=== PATIENT | female | born 1990 | race Caucasian/White ===

== ENCOUNTER 2017-02-08 15:21 | Emergency (ER) | payer MEDICAID ==
--- NOTE | 2017-02-08 17:37 | ER Document Report ---
ED Skin Rash/Insect Bite/Abscs - General Mode of Arrival: Ambulatory Information source: Patient TRAVEL OUTSIDE OF THE [place] IN LAST 30 DAYS: No - HPI Patient complains to provider of: Possible insect bite <RODNEY MCFARLAND - Last Filed: 02/08/17 17:42> <REI HDZ - Last Filed: 02/08/17 19:21> - General Chief Complaint: Insect Bite Stated Complaint: POSSIBLE INSECT BITES Time Seen by Provider: 02/08/17 16:59 Notes: Patient is a 26 year old female who presents to the emergency department complaining of an insect bite this morning. Patient states that she did not feel the bite which is near her left elbow but complains of a rash, itching, and burning around the area. Patient also complains of a bite to her forehead. (RODNEY MCFARLAND) - Related Data Allergies/Adverse Reactions: No Known Allergies Allergy (Verified 02/08/17 15:29) Past Medical History - General Information source: Patient - Social History Smoking Status: Unknown if Ever Smoked Family History: Reviewed & Not Pertinent, Other - No family history of seizures Patient has suicidal ideation: No Patient has homicidal ideation: No - Past Medical History Cardiac Medical History: Reports: Hx Hypertension - borderline - Immunizations Hx Diphtheria, Pertussis, Tetanus Vaccination: Yes <RODNEY MCFARLAND - Last Filed: 02/08/17 17:42> Review of Systems - Review of Systems Constitutional: No symptoms reported EENT: No symptoms reported Cardiovascular: No symptoms reported Respiratory: No symptoms reported Gastrointestinal: No symptoms reported Genitourinary: No symptoms reported Female Genitourinary: No symptoms reported Musculoskeletal: No symptoms reported Skin: See HPI, Lumps, Rash Hematologic/Lymphatic: No symptoms reported Neurological/Psychological: No symptoms reported -: Yes All other systems reviewed and negative <RODNEY MCFARLAND - Last Filed: 02/08/17 17:42> Physical Exam - Vital signs Interpretation: Normal - General General appearance: Appears well, Alert - HEENT Head: Normocephalic, Atraumatic, Other - Small puncture wound consistent with bug bite to upper right forehead Eyes: Normal Pupils: PERRL - Respiratory Respiratory status: No respiratory distress Chest status: Nontender Breath sounds: Normal Chest palpation: Normal - Cardiovascular Rhythm: Regular Heart sounds: Normal auscultation Murmur: No - Abdominal Inspection: Normal Distension: No distension Bowel sounds: Normal Tenderness: Nontender Organomegaly: No organomegaly - Back Back: Normal, Nontender - Extremities General upper extremity: Nontender, Normal color, Normal ROM, Normal temperature General lower extremity: Normal inspection, Nontender, Normal color, Normal ROM , Normal temperature, Normal weight bearing. No: Elin's sign - Neurological Neuro grossly intact: Yes Cognition: Normal Orientation: AAOx4 [place] Coma Scale Eye Opening: Spontaneous [place] Coma Scale Verbal: Oriented [place] Coma Scale Motor: Obeys Commands [place] Coma Scale Total: 15 Speech: Normal Motor strength normal: LUE, RUE, LLE, RLE Sensory: Normal - Psychological Associated symptoms: Normal affect, Normal mood - Skin Skin Temperature: Warm Skin Moisture: Dry Skin Color: Normal Skin irregularity: other - Area to the dorsal aspect of the distal left humerus that is swollen and red with excoriation <REI HDZ - Last Filed: 02/08/17 19:21> - Vital signs Vitals: Temp Pulse Resp BP Pulse Ox 98.2 F 108 H 20 132/87 H 100 02/08/17 15:30 02/08/17 15:30 02/08/17 15:30 02/08/17 15:30 02/08/17 15:30 Course <RODNEY MCFARLAND - Last Filed: 02/08/17 17:42> <REI HDZ - Last Filed: 02/08/17 19:21> - Re-evaluation Re-evalutation: 02/08/17 Consistent with localized allergic reaction to bug bite. Patient will be given a small dose of prednisone for a few days. She is to take Benadryl at home. She is also to take Claritin or Zyrtec daily. Understands and agrees with plan. Stable for discharge home. No evidence of infection at this time. Patient with insect envenomation and swelling that is also pruritic. (REI HDZ) - Vital Signs Vital signs: Temp Pulse Resp BP Pulse Ox 98.2 F 88 16 120/73 100 02/08/17 15:30 02/08/17 18:15 02/08/17 18:15 02/08/17 18:15 02/08/17 18:15 Discharge <RODNEY MCFARLAND - Last Filed: 02/08/17 17:42> <REI HDZ - Last Filed: 02/08/17 19:21> - Discharge Clinical Impression: Allergic reaction to bee sting Condition: Stable Disposition: HOME, SELF-CARE Instructions: Swollen Insect Bite or Sting ([facility]) Prescriptions: Epinephrine [Epipen 2-Gigi] 0.3 mg IM ONCE #1 ml Prednisone 2 mg PO DAILY #3 tablet Forms: Return to Work Scribe Attestation: 02/08/17 19:21 I personally performed the services described in the documentation, reviewed and edited the documentation which was dictated to the scribe in my presence, and it accurately records my words and actions. (REI HDZ)
[2017-02-08] MEDS ORDERED: PREDNISONE 20 MG TABLET PO ONE (17:50)
[2017-02-08 18:16] VITALS: BP 120/73
== END 2017-02-08 18:15 | disposition home or self-care (01) ==
LOC: ER 15:21
DX: T63.441A Toxic effect of venom of bees, accidental (unintentional), initial encounter (principal); L53.0 Toxic erythema; M79.89 Other specified soft tissue disorders
CPT/HCPCS: 99281; J7512

== ENCOUNTER 2019-04-11 11:47 | Emergency (ER) | payer SELFPAY ==
--- NOTE | 2019-04-11 12:13 | ER Document Report ---
ED Medical Screen (RME) - General Chief Complaint: Abdominal Pain Stated Complaint: ABDOMINAL PAIN Time Seen by Provider: 04/11/19 12:01 Notes: Patient is a G5, P4 28-year-old female who presents the emergency department with left lower quadrant abdominal pain. She states that her pain started about 4 to 5 days ago. She states that it feels like a cramping feeling. She has a confirmed from the health department, but she is unsure about how far along she is. She does not remember when her last menstrual cycle was. She denies any vaginal bleeding, dysuria, vaginal discharge, or history of ovarian cysts. Exam: Abdomen tender in the left lower quadrant. I have greeted and performed a rapid initial assessment of this patient. A comprehensive ED assessment and evaluation of the patient, analysis of test results and completion of medical decision making process will be conducted by an additional ED providers. TRAVEL OUTSIDE OF THE [place] IN LAST 30 DAYS: No - Related Data Allergies/Adverse Reactions: No Known Allergies Allergy (Verified 02/08/17 15:29) Past Medical History - Past Medical History Cardiac Medical History: Reports: Hx Hypertension - borderline Denies: Hx Coronary Artery Disease, Hx Heart Attack Pulmonary Medical History: Denies: Hx Asthma, Hx Bronchitis, Hx COPD, Hx Pneumonia Neurological Medical History: Denies: Hx Cerebrovascular Accident, Hx Migraine, Hx Seizures Endocrine Medical History: Denies: Hx Diabetes Mellitus Type 1, Hx Diabetes Mellitus Type 2 Renal/ Medical History: Denies: Hx Peritoneal Dialysis Musculoskeltal Medical History: Denies Hx Arthritis - Immunizations Hx Diphtheria, Pertussis, Tetanus Vaccination: Yes Physical Exam - Vital signs Vitals: Temp Pulse Resp BP Pulse Ox 97.6 F 100 18 123/78 98 04/11/19 11:50 04/11/19 11:50 04/11/19 11:50 04/11/19 11:50 04/11/19 11:50 Course - Vital Signs Vital signs: Temp Pulse Resp BP Pulse Ox 97.6 F 100 18 123/78 98 04/11/19 11:50 04/11/19 11:50 04/11/19 11:50 04/11/19 11:50 04/11/19 11:50
[2019-04-11 12:36] LABS: ABSOLUTE LYMPHOCYTES (AUTO) 1.9 10^3/uL (0.5-4.7); ABSOLUTE MONOCYTES (AUTO) 0.5 10^3/uL (0.1-1.4); ABSOLUTE NEUT (AUTO) 8.3 10^3/uL (1.7-8.2); BASOPHILS % (AUTO) 0.3 % (0-2); EOSINOPHILS % (AUTO) 0.5 % (0-6); HEMATOCRIT 32.7 % (36.0-47.0); HEMOGLOBIN 11.3 g/dL (12.0-15.5); LYMPHOCYTES % (AUTO) 17.8 % (13-45); MEAN CORPUSCULAR HEMOGLOBIN 33.4 pg (27.0-33.4); MEAN CORPUSCULAR HGB CONC 34.4 g/dL (32.0-36.0); MEAN CORPUSCULAR VOLUME 97 fl (80-97); MONOCYTES % (AUTO) 4.8 % (3-13); PLATELET COUNT 236 10^3/uL (150-450); RED BLOOD COUNT 3.37 10^6/uL (3.72-5.28); SEGMENTED NEUTROPHILS % (AUTO) 76.6 % (42-78); TOTAL CELLS COUNTED % (AUTO) 100 %; WHITE BLOOD COUNT 10.8 10^3/uL (4.0-10.5)
[2019-04-11 12:37] LABS: APPEARANCE,URINE SLIGHTLY-CLOUDY; BILIRUBIN,URINE NEGATIVE (NEGATIVE); COLOR,URINE YELLOW; GLUCOSE, URINE NEGATIVE (NEGATIVE); KETONES,URINE NEGATIVE (NEGATIVE); LEUKOCYTE ESTERASE,URINE NEGATIVE (NEGATIVE); NITRITE,URINE NEGATIVE (NEGATIVE); PROTEIN,URINE NEGATIVE (NEGATIVE); URINE SPECIFIC GRAVITY 1.024
[2019-04-11 12:50] LABS: ALBUMIN 3.2 g/dL (3.5-5.0); ALKALINE PHOSPHATASE 75 U/L (38-126); ANION GAP 5 (5-19); ASPARTATE AMINO TRANSFERASE 18 U/L (14-36); BILIRUBIN,DIRECT 0.1 mg/dL (0.0-0.4); BILIRUBIN,TOTAL 0.2 mg/dL (0.2-1.3); BLOOD UREA NITROGEN 8 mg/dL (7-20); CARBON DIOXIDE 21 mmol/L (22-30); CHLORIDE 109 mmol/L (98-107); GLUCOSE 89 mg/dL (75-110)
--- NOTE | 2019-04-11 12:59 | RADIOLOGY REPORT (SQ) ---
EXAM DESCRIPTION: U/S OB 14+ TRNABD 1GES W/O DOP COMPLETED DATE/TIME: 04/11/2019 12:46 pm REASON FOR STUDY: lower abd pain/ COMPARISON: None. TECHNIQUE: Limited transabdominal grayscale ultrasound for evaluation of specific requested obstetri maci parameters. LIMITATIONS: None. FINDINGS: Live Ojeda intrauterine measuring 30 weeks 2 days. IMTIAZ 06/18/2019. EFW 152 9 g. CERVICAL LENGTH: 4.6 cm Closed. HAMMAD: 12.2 cm. FHR: 123 beats per minute. PRESENTATION: Cephalic. PLACENTA: Anterior ANATOMY: Not assessed OTHER: No other significant findings. IMPRESSION: LIMITED OBSTETRICAL ULTRASOUND WITH MEASURED PARAMETERS DELINEATED ABOVE. Trimester of : Third trimester - 28 weeks to delivery. TECHNICAL DOCUMENTATION: JOB ID: [id number] [place]-72 2010 [employer]- All Rights Reserved Reading location - IP/workstation name: [email or web address]
[2019-04-11] MEDS ORDERED: NORMAL SALINE 1000 ML 1,000 ML IV ONE (13:16)
--- NOTE | 2019-04-11 13:51 | ER Document Report ---
ED GI/ - General Chief Complaint: Abdominal Pain Stated Complaint: ABDOMINAL PAIN Time Seen by Provider: 04/11/19 12:01 Primary Care Provider: VINCENT JOYNER MD [ACTIVE STAFF] - Follow up as needed Mode of Arrival: Ambulatory Information source: Patient Notes: RME note: Patient is a G5, P4 28-year-old female who presents the emergency department with left lower quadrant abdominal pain. She states that her pain started about 4 to 5 days ago. She states that it feels like a cramping feeling. She has a confirmed from the health department, but she is unsure about how far along she is. She does not remember when her last menstrual cycle was. She denies any vaginal bleeding, dysuria, vaginal discharge, or history of ovarian cysts. TRAVEL OUTSIDE OF THE [place] IN LAST 30 DAYS: No - Related Data Allergies/Adverse Reactions: No Known Allergies Allergy (Verified 02/08/17 15:29) Past Medical History - General Information source: Patient - Social History Smoking Status: Current Every Day Smoker Chew tobacco use (# tins/day): No Frequency of alcohol use: None Drug Abuse: None Family History: Reviewed & Not Pertinent, Other - No family history of seizures Patient has suicidal ideation: No Patient has homicidal ideation: No - Past Medical History Cardiac Medical History: Reports: Hx Hypertension - borderline Denies: Hx Coronary Artery Disease, Hx Heart Attack Pulmonary Medical History: Denies: Hx Asthma, Hx Bronchitis, Hx COPD, Hx Pneumonia Neurological Medical History: Denies: Hx Cerebrovascular Accident, Hx Migraine, Hx Seizures Endocrine Medical History: Denies: Hx Diabetes Mellitus Type 1, Hx Diabetes Mellitus Type 2 Renal/ Medical History: Denies: Hx Peritoneal Dialysis Musculoskeletal Medical History: Denies Hx Arthritis - Immunizations Hx Diphtheria, Pertussis, Tetanus Vaccination: Yes Review of Systems - Review of Systems Constitutional: No symptoms reported EENT: No symptoms reported Cardiovascular: No symptoms reported Respiratory: No symptoms reported Gastrointestinal: Abdominal pain, Nausea Genitourinary: No symptoms reported Female Genitourinary: No symptoms reported Musculoskeletal: No symptoms reported Skin: No symptoms reported Hematologic/Lymphatic: No symptoms reported Neurological/Psychological: No symptoms reported Physical Exam - Vital signs Vitals: Temp Pulse Resp BP Pulse Ox 97.6 F 100 18 123/78 98 04/11/19 11:50 04/11/19 11:50 04/11/19 11:50 04/11/19 11:50 04/11/19 11:50 - Notes Notes: PHYSICAL EXAMINATION: GENERAL: Well-appearing, well-nourished and in no acute distress. HEAD: Atraumatic, normocephalic. EYES: Pupils equal round and reactive to light, extraocular movements intact, conjunctiva are normal. ENT: Nares patent, oropharynx clear without exudates. Moist mucous membranes. NECK: Normal range of motion, supple without lymphadenopathy LUNGS: Breath sounds clear to auscultation bilaterally and equal. No wheezes rales or rhonchi. HEART: Regular rate and rhythm without murmurs ABDOMEN: Soft, nontender, gravid abdomen. No guarding, no rebound. No masses appreciated. Female : No CVA tenderness. Musculoskeletal: Normal range of motion, no pitting or edema. No cyanosis. NEUROLOGICAL: Cranial nerves grossly intact. Normal speech, normal gait. Normal sensory, motor exams PSYCH: Normal mood, normal affect. SKIN: Warm, Dry, normal turgor, no rashes or lesions noted. Course - Re-evaluation Re-evalutation: Labs and radiology as recorded. Patient is 30 weeks 2 days . She reports she had a positive home test but was not sure how far along she was. Patient will follow-up with [facility]. Likely left lower quadrant pain is from round ligament pain. At the time of my evaluation her abdomen is soft, nontender she has not vomited or had diarrhea. She denies any fevers, dysuria or vaginal discharge. Laboratory 04/11/19 04/11/19 04/11/19 12:20 12:20 12:20 WBC 10.8 H RBC 3.37 L Hgb 11.3 L Hct 32.7 L MCV 97 MCH 33.4 MCHC 34.4 RDW 13.0 Plt Count 236 Seg Neutrophils % 76.6 Lymphocytes % 17.8 Monocytes % 4.8 Eosinophils % 0.5 Basophils % 0.3 Absolute Neutrophils 8.3 H Absolute Lymphocytes 1.9 Absolute Monocytes 0.5 Absolute Eosinophils 0.0 Absolute Basophils 0.0 Sodium 135.3 L Potassium 4.0 Chloride 109 H Carbon Dioxide 21 L Anion Gap 5 BUN 8 Creatinine 0.42 L Est GFR ( Amer) > 60 Est GFR (Non-Af Amer) > 60 Glucose 89 Calcium 9.0 Total Bilirubin 0.2 Direct Bilirubin 0.1 Neonat Total Bilirubin Not Reportable Neonat Direct Bilirubin Not Reportable Neonat Indirect Bili Not Reportable AST 18 ALT 12 Alkaline Phosphatase 75 Total Protein 6.0 L Albumin 3.2 L Serum HCG, Qual POSITIVE H Beta HCG, Quant 6671.80 H Total Beta HCG POSITIVE Urine Color Urine Appearance Urine pH Ur Specific [place] Urine Protein Urine Glucose (UA) Urine Ketones Urine Blood Urine Nitrite Urine Bilirubin Urine Urobilinogen Ur Leukocyte Esterase Urine WBC (Auto) Urine RBC (Auto) Urine Bacteria (Auto) Squamous Epi Cells Auto Urine Mucus (Auto) Urine Ascorbic Acid 04/11/19 12:20 WBC RBC Hgb Hct MCV MCH MCHC RDW Plt Count Seg Neutrophils % Lymphocytes % Monocytes % Eosinophils % Basophils % Absolute Neutrophils Absolute Lymphocytes Absolute Monocytes Absolute Eosinophils Absolute Basophils Sodium Potassium Chloride Carbon Dioxide Anion Gap BUN Creatinine Est GFR ( Amer) Est GFR (Non-Af Amer) Glucose Calcium Total Bilirubin Direct Bilirubin Neonat Total Bilirubin Neonat Direct Bilirubin Neonat Indirect Bili AST ALT Alkaline Phosphatase Total Protein Albumin Serum HCG, Qual Beta HCG, Quant Total Beta HCG Urine Color YELLOW Urine Appearance SLIGHTLY-CLOUDY Urine pH 6.0 Ur Specific [place] 1.024 Urine Protein NEGATIVE Urine Glucose (UA) NEGATIVE Urine Ketones NEGATIVE Urine Blood NEGATIVE Urine Nitrite NEGATIVE Urine Bilirubin NEGATIVE Urine Urobilinogen 2.0 H Ur Leukocyte Esterase NEGATIVE Urine WBC (Auto) 1 Urine RBC (Auto) 1 Urine Bacteria (Auto) TRACE Squamous Epi Cells Auto 10 Urine Mucus (Auto) RARE Urine Ascorbic Acid NEGATIVE Obstetrics Ultrasound 04/11/19 12:09 IMPRESSION: LIMITED OBSTETRICAL ULTRASOUND WITH MEASURED PARAMETERS DELINEATED ABOVE. Trimester of : Third trimester - 28 weeks to delivery. - Vital Signs Vital signs: Temp Pulse Resp BP Pulse Ox 98.0 F 90 16 112/70 100 04/11/19 14:22 04/11/19 14:22 04/11/19 14:22 04/11/19 14:22 04/11/19 14:22 - Laboratory Result Diagrams: 04/11/19 12:20 04/11/19 12:20 Laboratory results interpreted by me: 04/11/19 04/11/19 04/11/19 12:20 12:20 12:20 WBC 10.8 H RBC 3.37 L Hgb 11.3 L Hct 32.7 L Absolute Neutrophils 8.3 H Sodium 135.3 L Chloride 109 H Carbon Dioxide 21 L Creatinine 0.42 L Total Protein 6.0 L Albumin 3.2 L Serum HCG, Qual POSITIVE H Beta HCG, Quant 6671.80 H Urine Urobilinogen 04/11/19 12:20 WBC RBC Hgb Hct Absolute Neutrophils Sodium Chloride Carbon Dioxide Creatinine Total Protein Albumin Serum HCG, Qual Beta HCG, Quant Urine Urobilinogen 2.0 H Discharge - Discharge Clinical Impression: Left lower quadrant abdominal pain Qualifiers: Weeks of gestation: 30 weeks Qualified Code(s): Z3A.30 - 30 weeks gestation of Condition: Stable Disposition: HOME, SELF-CARE Additional Instructions: Copy of your ultrasound report has been provided to you. Please call the health department and let them know that you are 30 weeks and will need to be followed by [facility] at this point of your . For nausea you can safely take Benadryl. You can also eat saltine crackers or troy janet which both may h elp with nausea. Please return to the emergency department for any new or worsening symptoms to include development of worsening abdominal pain, persistent vomiting, fever or any other symptom that is concerning to you. Referrals: VINCENT JOYNER MD [ACTIVE STAFF] - Follow up as needed
[2019-04-11 14:23] VITALS: BP 112/70
== END 2019-04-11 14:30 | disposition home or self-care (01) ==
LOC: ER 11:47
DX: O26.893 Other specified pregnancy related conditions, third trimester (principal); R10.32 Left lower quadrant pain; R11.0 Nausea; O99.333 Smoking (tobacco) complicating pregnancy, third trimester; F17.200 Nicotine dependence, unspecified, uncomplicated; Z3A.30 30 weeks gestation of pregnancy
CPT/HCPCS: 36415; 84702; 84703; 85025; 80053; 81001; 76805; J7030; 99284

== ENCOUNTER → 2019-04-19 | Outpatient (CLI) | payer SELFPAY ==
--- NOTE | 2019-04-19 14:19 | RADIOLOGY REPORT (SQ) ---
EXAM DESCRIPTION: U/S OB 14+ TRNABD 1GES W/O DOP COMPLETED DATE/TIME: 04/19/2019 1:50 pm REASON FOR STUDY: Z34.83 ENCOUNTER FOR SUPRVSN OF NORMAL , THIRD TRIMESTER Z34.83 ENCOUNTE R FOR SUPRVSN OF NORMAL , THIRD TRIM 30 weeks 5 days gestation COMPARISON: 04/11/2019 TECHNIQUE: Static and Dynamic grayscale imaging performed of gravid uterus using transabdominal appr oach. Additional selected color Doppler and spectral images recorded. All stored on PACS. LIMITATIONS: None. FINDINGS: FETUSES SEEN:1 EGA: 30 weeks 5 days Calculated using BPD,FL,HC,AC documented on images. No discrepancy with clinica l dates. IMTIAZ: 06/23/2019 EFW: 1667+/- 247 grams PERCENTILE: 45th HAMMAD: 13.5 cm. PLACENTA: Anterior, grade 1. PRESENTATION: Cephalic. ANATOMY: HEART RATE: 144 beats per minute. FOUR CHAMBER HEART: Visualized. THREE VESSEL CORD: Yes. CORD INSERTION: Visualized. KIDNEYS AND BLADDER: Visualized. Appear normal. STOMACH: Visualized. Appears normal. SPINE: Normal as visualized. BRAIN AND LATERAL VENTRICLES: Visualized. Appear normal. OTHER: No other significant finding. MATERNAL ADNEXA: Maternal ovaries not visualized. CERVICAL LENGTH: 3 cm. Closed. OTHER: No other significant finding. IMPRESSION: LIVING INTRAUTERINE . ESTIMATED GESTATIONAL AGE 30 weeks 5 days NO VISUALIZED ANOMALIES. Trimester of : Third trimester - 28 weeks to delivery. TECHNICAL DOCUMENTATION: JOB ID: [id number] [email or web address]- All Rights Reserved Reading location - IP/workstation name: [email or web address]
== END ==
LOC: RAD 12:52
PROVIDERS: ATTEND Midwife
DX: Z34.83 Encounter for supervision of other normal pregnancy, third trimester (principal)
CPT/HCPCS: 76805

== ENCOUNTER 2019-05-26 22:31 | Inpatient (IN) | payer MEDICAID ==
[2019-05-26] MEDS ORDERED: OXYTOCIN 10 UNIT/ML VIAL ONE (23:31)
[2019-05-26] MEDS ORDERED: MISOPROSTOL 0.2 MG TABLET ONE (23:32)
[2019-05-26] MEDS ORDERED: OXYTOCIN/NORMAL SALINE 20 UNIT/1,000 ML RTUINJ ONE (23:32)
[2019-05-26] MEDS ORDERED: LIDOCAINE 1% INJ-PF (10 MG/ML) 30 ML SDV ONE (23:32)
[2019-05-26] MEDS ORDERED: PENICILLIN G-K 5 MILLION UNIT VIAL ONE (23:36)
[2019-05-26 23:37] LABS: APPEARANCE,URINE CLOUDY; BILIRUBIN,URINE NEGATIVE (NEGATIVE); COLOR,URINE YELLOW; GLUCOSE, URINE NEGATIVE (NEGATIVE); KETONES,URINE NEGATIVE (NEGATIVE); LEUKOCYTE ESTERASE,URINE TRACE (NEGATIVE); NITRITE,URINE NEGATIVE (NEGATIVE); PROTEIN,URINE 100 mg/dL (NEGATIVE); URINE SPECIFIC GRAVITY 1.013; UROBILINOGEN,URINE NEGATIVE mg/dL (<2.0)
[2019-05-26 23:53] LABS: URINE AMPHETAMINES SCREEN NEGATIVE; URINE BARBITURATES SCREEN NEGATIVE; URINE BENZODIAZEPINES SCREEN NEGATIVE; URINE COCAINE SCREEN NEGATIVE; URINE MARIJUANA (THC) SCREEN NEGATIVE; URINE METHADONE SCREEN NEGATIVE; URINE PHENCYCLIDINE SCREEN NEGATIVE
[2019-05-26 23:56] LABS: ABSOLUTE EOSINOPHILS # (AUTO) 0.1 10^3/uL (0.0-0.6); ABSOLUTE LYMPHOCYTES (AUTO) 2.4 10^3/uL (0.5-4.7); ABSOLUTE MONOCYTES (AUTO) 0.8 10^3/uL (0.1-1.4); ABSOLUTE NEUT (AUTO) 10.6 10^3/uL (1.7-8.2); BASOPHILS % (AUTO) 0.3 % (0-2); EOSINOPHILS % (AUTO) 0.7 % (0-6); HEMATOCRIT 30.6 % (36.0-47.0); HEMOGLOBIN 10.6 g/dL (12.0-15.5); LYMPHOCYTES % (AUTO) 17.4 % (13-45); MEAN CORPUSCULAR HEMOGLOBIN 33.4 pg (27.0-33.4); MEAN CORPUSCULAR HGB CONC 34.7 g/dL (32.0-36.0); MEAN CORPUSCULAR VOLUME 96 fl (80-97); MONOCYTES % (AUTO) 5.5 % (3-13); PLATELET COUNT 239 10^3/uL (150-450); RED BLOOD COUNT 3.18 10^6/uL (3.72-5.28); SEGMENTED NEUTROPHILS % (AUTO) 76.1 % (42-78); TOTAL CELLS COUNTED % (AUTO) 100 %; WHITE BLOOD COUNT 13.9 10^3/uL (4.0-10.5)
[2019-05-26] MEDS ORDERED: PENICILLIN G POTASSIUM 5,000,000 UNIT in DEXTROSE 5%-WATER 100 ML IV ONE (23:59)
[2019-05-27] MEDS ORDERED: PENICILLIN G-K 5 MILLION UNIT VIAL ONE ×2 (03:54→07:44)
--- NOTE | 2019-05-27 03:58 | Admission Physical ---
Datetime Report Generated by CPN: 05/27/2019 03:57 CURRENT ADMISSION Chief Complaint: Suspected Ruptured Membranes Indication for Induction: Not Applicable Admit Impression : , Intrauterine ; No Active Labor Admit Plan: Admit to Unit; Initiate Labor Induction Protocol ALLERGIES Medication Allergies: No Medication Allergies: No Known Allergies (05/26/2019) Latex: No Latex Allergies OBSTETRICAL HISTORY EDC: 06/23/2019 00:00 : 5 Para: 4 Term: 4 : 0 SAB: 0 IAB: 0 Ectopic: 0 Livin Cesareans: 0 VBACs: 0 Multiple Births: 0 Gestational Diabetes: No Rh Sensitization: No Incompetent Cervix: No YESIKA: No Infertility: No ART Treatment: No Uterine Anomaly: No IUGR: No Hx Previous C/S: No Macrosomia: No Hx Loss/Stillborn: No PIH: No Hx : No Placenta Previa/Abruption: No Depression/PP Depression: No PTL/PROM: No Post Hemorrhage: No Obstetrical History Comments: G1 2007 boy @ 37 weeks G2 2008 boy IOL @37 weeks G3 2013 girl @42 G4 2015 girl @42 G5 current SEE RECORDS Alcohol: No Marijuana : No Cocaine: No Other Illicit Drugs: No Cigarettes: Current Everyday Smoker. [id number] Cigarette Frequency: 5 - 10 per day Advised to Stop: Yes MEDICAL HISTORY Diabetes: No Blood Transfusion: No Pulmonary Disease (Asthma, TB): No Breast Disease: No Hypertension: No Physical Security Specialist Surgery: No Heart Disease: No Hosp/Surgery: Yes Autoimmune Disorder: No Anesthetic Complications: No Kidney Disease: No Abnormal Pap Smear: No Neuro/Epilepsy: No Psychiatric Disorders: No Other Medical Diseases: No Hepatitis/Liver Disease: No Significant Family History: No Varicosities/Phlebitis: No Trauma/Violence : No Thyroid Dysfunction: No Medical History Comments: esophagus surgery as an INFECTIOUS HISTORY Gonorrhea: No Genital Herpes: No Chlamydia: No Tuberculosis: No Syphilis: No Hepatitis: No HIV/AIDS Exposure: No Rash or Viral Illness: No HPV: No PHYSICAL EXAM General: Normal HEENT: Normal Neurologic: Normal Thyroid: Normal Heart: Normal Lungs: Normal Breast: Normal Back: Normal Abdomen: Normal Genitourinary Exam: Normal Extremities: Normal DTRs: Normal Pelvic Type: Adequate Vital Signs: Reviewed; Within Normal Limits VAGINAL EXAM Dilatation: 1 Effacement: thick Station: -3 MEMBRANES Pooling: Positive Membranes: Ruptured Amniotic Fluid Color: Clear FETUS A EGA: 36.1 Monitoring: External US FHR- Baseline: 120s Variability: Moderate 6-25bpm Accelerations: 15X15 Decelerations: None FHR Category: Category I Admit Comment: presents to L_D c/o SROM @ 2100--clear fluid noted. She reports good movement. GBS unknown. PLANS FOR LABOR AND DELIVERY Pain Management: Natural Feeding Preference: Breast Benefit of Breast Feed Discussed: Yes Circumcision: Yes INFORMED CONSENT Signature: with User ID: [email or web address]
[2019-05-27] MEDS: PENICILLIN G POTASSIUM 2,500,000 UNIT in DEXTROSE 5%-WATER 50 ML IV SCH ×4 (04:03→17:51)
[2019-05-27] MEDS ORDERED: OXYTOCIN/NORMAL SALINE 20 UNIT/1,000 ML RTUINJ IV PRN ×2 (04:51→09:24)
[2019-05-27] MEDS ORDERED: FENTANYL CITRATE INJ/PF 100 MCG/2 ML AMPUL IV ONE (08:00)
[2019-05-27] MEDS ORDERED: FENTANYL CITRATE INJ/PF 100 MCG/2 ML AMPUL ONE (08:09)
[2019-05-27] MEDS ORDERED: DIPHENHYDRAMINE HCL 25 MG CAPSULE PO PRN (09:24)
[2019-05-27] MEDS ORDERED: ZOLPIDEM TARTRATE 5 MG TABLET PO PRN (09:24)
[2019-05-27] MEDS ORDERED: BENZOCAINE/MENTHOL AEROSOL SPRAY 56 ML TOP PRN (09:24)
[2019-05-27] MEDS ORDERED: PSEUDOEPHEDRINE HCL 30 MG TABLET PO PRN (09:24)
[2019-05-27] MEDS ORDERED: PROMETHAZINE HCL 25 MG SUPP.RECT PR PRN (09:24)
[2019-05-27] MEDS ORDERED: DIPH/PERTUSS(ACELL)/TETANUS VAC/PF 0.5 ML SYR (>=10YO) IM PRN (09:24)
[2019-05-27] MEDS ORDERED: DIBUCAINE 1% OINTMENT 56 GM TP PRN (09:24)
[2019-05-27] MEDS ORDERED: ACETAMINOPHEN 650 MG SUPP.RECT PR PRN (09:24)
[2019-05-27] MEDS ORDERED: PROMETHAZINE HCL INJ 25 MG/1 ML VIAL IV PRN (09:24)
[2019-05-27] MEDS ORDERED: GLYCERIN/WITCH HAZEL LEAF 1 EACH MED..WIPE TP PRN (09:24)
[2019-05-27] MEDS ORDERED: MAGNESIUM HYDROXIDE SUSP 30 ML UDCUP PO PRN (09:24)
[2019-05-27] MEDS ORDERED: PROMETHAZINE HCL 25 MG TABLET PO PRN (09:24)
[2019-05-27] MEDS ORDERED: MEASLES,MUMPS&RUBELLA VACC/PF 0.5 ML VIAL SUBCUT PRN (09:24)
[2019-05-27] MEDS ORDERED: ACETAMINOPHEN WITH CODEINE #3 TABLET PO PRN ×2 (09:24)
[2019-05-27] MEDS ORDERED: NA PHOS,M-B/NA PHOS,DI-BA (ADULT) 133 ML ENEMA PR PRN (09:24)
[2019-05-27] MEDS: DOCUSATE SODIUM 100 MG CAPSULE PO SCH ×2 (10:36→17:49)
[2019-05-27] MEDS: FAMOTIDINE 20 MG TABLET PO SCH ×2 (10:36→22:56)
[2019-05-27] MEDS: FERROUS SULFATE 325 MG TABLET PO SCH ×2 (10:36→17:49)
[2019-05-27] MEDS: PRENATAL VITAMIN W DHA CAPSULE PO SCH (10:36)
[2019-05-27] MEDS: SENNOSIDES/DOCUSATE 8.6-50 MG 1 EACH TABLET PO SCH (10:37)
--- NOTE | 2019-05-27 11:06 | Warning Signs in Babies ---
VOD Warning Signs Datetime Report Generated by [facility]: 05/27/2019 11:06 VOD#[id number] -Warning Signs in Babies: Viewed with Parent(s)/Family (05/27/2019 11:06:Kalia Ford RN)
--- NOTE | 2019-05-27 12:07 | Delivery Summary ---
Del Sum A-C Datetime Report Generated by CPN: 05/27/2019 12:07 DELIVERY PERSONNEL DELIVERY PERSONNEL: [id number] Delivery Doctor:: Renetta Lyons CNM Nurse Stenotypist Certified:: Renetta Lyons CNM Labor and Delivery Nurse:: Kalia Ford RNplan manager Nurse:: MEGAN Hanna Student Observers:: SN Donte Andersen/TAMIR: Radha Olivo CNA II MATERNAL INFORMATION Delivery Anesthesia: None Medications After Delivery: Pitocin Drip 20 Units/1000ml NSS Meds After Delivery Comment: 20 units pitocin bolus s/p placenta Estimated Blood Loss (ml): 125 Delivery QBL: 125 Maternal Complications: Premature Rupture of Membranes Provider Comments: live male in vertex OA to RADHA with tight nuchal cord, unable to reduce-delivered through cord at 0848. Spontaneous respirations and cry. 3-vessel cord. Apgars 7-8. Perineum inspected-2 small skid martinez, no repair needed. Placenta, membranes, and cord expelled at 0852, Jane presentation. Patient tolerated procedure well. FF at U-3. Baby on chest when CNM left room. LABOR SUMMARY EDC: 06/23/2019 00:00 No. Babies in Womb: 1 Attempted: No Labor Anesthesia: None LABOR INFORMATION Reason for Induction: Not Applicable Onset of Labor: 05/27/2019 08:00 Complete Dilatation: 05/27/2019 08:39 Oxytocin: Augmentation Group B Beta Strep: unknown Antibiotics # of Doses: 3 Name of Antibiotic Given: Penicillin Steroids Given: None Reason Steroids Not Administered: Not Applicable MEMBRANES Membranes Rupture Method: Spontaneous Rupture of Membranes: 05/26/2019 21:00 Length of Rupture (hr): 11.80 Amniotic Fluid Color: Clear Amniotic Fluid Amount: Large Amniotic Fluid Odor: Normal STAGES OF LABOR Stage 1 hr: 0 Stage 1 min: 39 Stage 2 hr: 0 Stage 2 min: 9 Stage 3 hr: 0 Stage 3 min: 4 Total Time in Labor hr: 0 Total Time in Labor min: 52 VAGINAL DELIVERY Episiotomy: None Laceration #1: None Laceration Extension #1: N/A Laceration Repair: Not Applicable Sponge Count Correct: N/A Sharps Count Correct: Yes BABY A INFORMATION Delivery Date/Time: 05/27/2019 08:48 Method of Delivery: Vaginal Born in Route : No : N/A Forceps: N/A Vacuum Extraction: N/A Shoulder Dystocia : No PRESENTATION/POSITION BABY A Presentation: Cephalic Cephalic Presentation: Vertex Vertex Position: Right Occipital Anterior Breech Presentation: N/A PLACENTA INFORMATION BABY A Placenta Delivery Time : 05/27/2019 08:52 Placenta Method of Delivery: Expressed Placenta Status: Delivered SCORES BABY A Heart Rate 1 min: >100 bpm Resp Effort 1 min: Good Cry Reflex Irritability 1 min: Cough or Sneeze or Pulls Away Muscle Tone 1 min: Some Flexion of Extremities Color 1 min: Blue/Pale Resuscitation Effort 1 min: Tactile Stimulation SCORE 1 MIN: 7 Heart Rate 5 min: >100 bpm Resp Effort 5 min: Good Cry Reflex Irritability 5 min: Cough or Sneeze or Pulls Away Muscle Tone 5 min: Some Flexion of Extremities Color 5 min: Body [place], Extremities Blue Resuscitation Effort 5 min: Tactile Stimulation SCORE 5 MIN: 8 INFORMATION BABY A Gestational Age at Delivery: 36.1 Gestational Status: Late - 34- 36.6 Weeks Outcome : Liveborn Condition : Stable Sex: Male IDENTIFICATION BABY A Verification Date/Time: 05/27/2019 09:08 ID Band Number: [id number] Mother's Name Verified: Yes Infant RN Verifying Infant: V Monk RN Additional Verifying Personnel: S Chucho ROTARY FURNACE TENDER WEIGHT/LENGTH BABY A Infant Birthweight (gm): 2605 Infant Weight (lb): 5 Infant Weight (oz): 12 Infant Length (in): 19.25 Infant Length (cm): 48.90 CORD INFORMATION BABY A No. Cord Vessels: 3 Nuchal Cord : Around Neck x1, Tight Cord Blood Taken: Yes-For Eval (Mom's Blood Type - or O+) Suction: None ASSESSMENT BABY A Complications: None Physical Findings at Delivery: Molding of the Head Respirations: Appears Normal Skin to Skin: Yes Skin to Skin Time (min): 13 Quarry Boss/ALS Called : Yes Care By: Marvin Transferred To: Remains with Mother BABY B INFORMATION : N/A SIGNATURES Assignment: Amna Bell MD Signature: with User ID: [email or web address] : with User ID: [email or web address] : I personally evaluated and examined the patient in conjunction with the MLP and agree with the assessment, treatment plan and disposition.
[2019-05-27] MEDS: IBUPROFEN 800 MG TABLET PO SCH ×2 (13:55→22:56)
[2019-05-28] MEDS: PENICILLIN G POTASSIUM 2,500,000 UNIT in DEXTROSE 5%-WATER 50 ML IV SCH ×2 (00:30→05:23)
[2019-05-28] MEDS: IBUPROFEN 800 MG TABLET PO SCH ×3 (06:32→21:29)
[2019-05-28 06:50] LABS: HEMATOCRIT 27.8 % (36.0-47.0); HEMOGLOBIN 9.4 g/dL (12.0-15.5); MEAN CORPUSCULAR HGB CONC 33.9 g/dL (32.0-36.0); MEAN CORPUSCULAR VOLUME 98 fl (80-97); PLATELET COUNT 197 10^3/uL (150-450); RED BLOOD COUNT 2.85 10^6/uL (3.72-5.28); RED CELL DISTRIBUTION WIDTH 13.1 % (11.5-14.0); WHITE BLOOD COUNT 10.9 10^3/uL (4.0-10.5)
[2019-05-28] MEDS: SENNOSIDES/DOCUSATE 8.6-50 MG 1 EACH TABLET PO SCH (09:24)
[2019-05-28] MEDS: DOCUSATE SODIUM 100 MG CAPSULE PO SCH ×2 (09:24→18:05)
[2019-05-28] MEDS: PRENATAL VITAMIN W DHA CAPSULE PO SCH (09:24)
[2019-05-28] MEDS: FAMOTIDINE 20 MG TABLET PO SCH ×2 (09:24→21:28)
[2019-05-28] MEDS: FERROUS SULFATE 325 MG TABLET PO SCH ×2 (09:24→18:05)
--- NOTE | 2019-05-28 10:39 | PDOC PROGRESS REPORT ---
Subjective-OB Progress Note for:: 05/28/19 Subjective: Doing well, baby in NICU, but wants to go Physical Exam (OB) Vital Signs: Temp Pulse Resp BP Pulse Ox 97.7 F 70 16 108/67 99 05/27/19 19:55 05/27/19 19:55 05/27/19 19:55 05/27/19 19:55 05/27/19 19:55 Intake & Output 05/27/19 05/28/19 05/29/19 06:59 06:59 06:59 Intake Total 850 Balance 850 Weight 88.9 kg - PIH/Pre-Eclampsia Epigastric Pain: No Visual Changes: No - Lochia Lochia Amount: Scant < 10 ml Lochia Color: Rubra/Red - Abdomen Description: Soft Hernia Present: No Fundal Description: Firm, Midline Fundal Height: u/u - u/2 Objective-Diagnostic Laboratory: 05/28/19 06:25 05/28/19 06:25 WBC 10.9 H RBC 2.85 L Hgb 9.4 L Hct 27.8 L MCV 98 H MCH 33.0 MCHC 33.9 RDW 13.1 Plt Count 197 Assessment and Plan(PN) - Assessment and Plan (2) Smoker Is this a current diagnosis for this admission?: Yes - Time Spent with Patient Time with patient: Less than 15 minutes Medications reviewed and adjusted accordingly: Yes - Disposition Anticipated Discharge: Home Within: within 24 hours
[2019-05-29] MEDS: IBUPROFEN 800 MG TABLET PO SCH (06:19)
[2019-05-29] MEDS: FERROUS SULFATE 325 MG TABLET PO SCH (09:01)
[2019-05-29] MEDS: PRENATAL VITAMIN W DHA CAPSULE PO SCH (09:01)
[2019-05-29] MEDS: SENNOSIDES/DOCUSATE 8.6-50 MG 1 EACH TABLET PO SCH (09:02)
[2019-05-29] MEDS: FAMOTIDINE 20 MG TABLET PO SCH (09:02)
[2019-05-29] MEDS: DOCUSATE SODIUM 100 MG CAPSULE PO SCH (09:02)
[2019-05-29 09:11] VITALS: BP 134/63
--- NOTE | 2019-05-29 10:31 | PDOC PROGRESS REPORT ---
Subjective-OB Progress Note for:: 05/29/19 Subjective: Ready to go home, has other children at home, baby not going, Physical Exam (OB) Vital Signs: Temp Pulse Resp BP Pulse Ox 97.9 F 50 L 16 134/63 H 100 05/29/19 08:40 05/29/19 08:40 05/29/19 08:40 05/29/19 08:40 05/29/19 08:40 Intake & Output 05/28/19 05/29/19 05/30/19 06:59 06:59 06:59 Intake Total 850 Balance 850 - PIH/Pre-Eclampsia Headache: Absent Epigastric Pain: No Visual Changes: No - Lochia Lochia Amount: Scant < 10 ml Lochia Color: Rubra/Red - Abdomen Description: Tender, Soft Hernia Present: No Fundal Description: Firm, Midline Fundal Height: u/u - u/2 Objective-Diagnostic Laboratory: 05/28/19 06:25 Assessment and Plan(PN) - Assessment and Plan (2) Smoker Is this a current diagnosis for this admission?: Yes (3) Late onset care Is this a current diagnosis for this admission?: Yes - Time Spent with Patient Time with patient: Less than 15 minutes Smoking Education Provided: Over 3 minutes Medications reviewed and adjusted accordingly: Yes - Disposition Anticipated Discharge: Home Within: within 24 hours
--- NOTE | 2019-05-29 10:35 | PDOC DISCHARGE SUMMARY ---
Impression - Admit/DC Date/PCP Admission Date/Primary Care Provider: 05/26/19 23:23 CARLOS MORAN CNM Discharge Date: 05/29/19 - Discharge Diagnosis (1) Delivery normal Is this a current diagnosis for this admission?: Yes (2) Smoker Is this a current diagnosis for this admission?: Yes (3) Late onset care Is this a current diagnosis for this admission?: Yes - Additional Information Resuscitation Status: Full Code Discharge Diet: As Tolerated, Regular Discharge Activity: Activity As Tolerated, No Lifting Over 10 Pounds, Pelvic Rest Referrals: TIFFANIE MORAN MD [ACTIVE STAFF] - (RTC 4 weeks) Home Medications: No Home Medications 05/27/19 HPI Gestational Age: 36.1 Reason(s) for Admission: Onset of Labor, PROM Procedures: Ultrasound Intrapartum Procedure(s): Spontaneous Vaginal Delivery Hospital Course Hospital Course: no problem, GBS unknown Results Laboratory Results: WBC 10.9 10^3/uL (4.0-10.5) H 05/28/19 06:25 RBC 2.85 10^6/uL (3.72-5.28) L 05/28/19 06:25 Hgb 9.4 g/dL (12.0-15.5) L 05/28/19 06:25 Hct 27.8 % (36.0-47.0) L 05/28/19 06:25 MCV 98 fl (80-97) H 05/28/19 06:25 MCH 33.0 pg (27.0-33.4) 05/28/19 06:25 MCHC 33.9 g/dL (32.0-36.0) 05/28/19 06:25 RDW 13.1 % (11.5-14.0) 05/28/19 06:25 Plt Count 197 10^3/uL (150-450) 05/28/19 06:25 Lymph % (Auto) 17.4 % (13-45) 05/26/19 23:45 [place] % (Auto) 5.5 % (3-13) 05/26/19 23:45 Eos % (Auto) 0.7 % (0-6) 05/26/19 23:45 Baso % (Auto) 0.3 % (0-2) 05/26/19 23:45 Absolute Neuts (auto) 10.6 10^3/uL (1.7-8.2) H 05/26/19 23:45 Absolute Lymphs (auto) 2.4 10^3/uL (0.5-4.7) 05/26/19 23:45 Absolute Monos (auto) 0.8 10^3/uL (0.1-1.4) 05/26/19 23:45 Absolute Eos (auto) 0.1 10^3/uL (0.0-0.6) 05/26/19 23:45 Absolute Basos (auto) 0.0 10^3/uL (0.0-0.2) 05/26/19 23:45 Seg Neutrophils % 76.1 % (42-78) 05/26/19 23:45 Urine Color YELLOW 05/26/19 22:31 Urine Appearance CLOUDY 05/26/19 22:31 Urine pH 6.0 (5.0-9.0) 05/26/19 22:31 Ur Specific [place] 1.013 05/26/19 22:31 Urine Protein 100 mg/dL (NEGATIVE) H 05/26/19 22:31 Urine Glucose (UA) NEGATIVE mg/dL (NEGATIVE) 05/26/19 22:31 Urine Ketones NEGATIVE mg/dL (NEGATIVE) 05/26/19 22:31 Urine Blood SMALL (NEGATIVE) H 05/26/19 22:31 Urine Nitrite NEGATIVE (NEGATIVE) 05/26/19 22:31 Urine Bilirubin NEGATIVE (NEGATIVE) 05/26/19 22:31 Urine Urobilinogen NEGATIVE mg/dL (<2.0) 05/26/19 22:31 Ur Leukocyte Esterase TRACE (NEGATIVE) H 05/26/19 22:31 Urine WBC (Auto) 5 /HPF 05/26/19 22:31 Urine RBC (Auto) 4 /HPF 05/26/19 22:31 Urine Bacteria (Auto) 2+ /HPF 05/26/19 22:31 Squamous Epi Cells Auto 12 /HPF 05/26/19 22:31 U Non-Squamous Epis Auto 1 /HPF 05/26/19 22:31 Urine Mucus (Auto) RARE /LPF 05/26/19 22:31 Urine Ascorbic Acid NEGATIVE (NEGATIVE) 05/26/19 22:31 Membranes Rupture POSITIVE (NEGATIVE) H 05/26/19 23:15 Urine Opiates Screen NEGATIVE 05/26/19 22:31 Urine Methadone Screen NEGATIVE 05/26/19 22:31 Ur Barbiturates Screen NEGATIVE 05/26/19 22:31 Ur Phencyclidine Scrn NEGATIVE 05/26/19 22:31 Ur Amphetamines Screen NEGATIVE 05/26/19 22:31 U Benzodiazepines Scrn NEGATIVE 05/26/19 22:31 Urine Cocaine Screen NEGATIVE 05/26/19 22:31 U Marijuana (THC) Screen NEGATIVE 05/26/19 22:31 RPR NONREACTIVE (NONREACTIVE) 05/26/19 23:45 Blood Type O POSITIVE 05/26/19 23:45 Antibody Screen NEGATIVE 05/26/19 23:45 Plan Health Concerns: take vitamins Time Spent: Less than 30 Minutes
== END 2019-05-29 13:00 | disposition home or self-care (01) | DRG 807 ==
LOC: LC 22:31 → LR 23:23 → 2S 05-27 12:15
PROVIDERS: ADMIT Obstetrics & Gynecology; ATTEND Obstetrics & Gynecology
PROC: 10E0XZZ Delivery of Products of Conception, External Approach (ICD-10-PCS; principal; 2019-05-27)
DX: O42.913 Preterm premature rupture of membranes, unspecified as to length of time between rupture and onset of labor, third trimester (principal); Z37.0 Single live birth; F17.210 Nicotine dependence, cigarettes, uncomplicated; O99.334 Smoking (tobacco) complicating childbirth; O69.1XX0 Labor and delivery complicated by cord around neck, with compression, not applicable or unspecified; Z3A.36 36 weeks gestation of pregnancy
CPT/HCPCS: 36415; 80307; 81001; 84112; 85025; 85027; 86592; 86850; 86900; 86901; 88307; J2540; J2590; J3010; J3490; J7060

== ENCOUNTER 2019-07-23 05:35 | Day surgery (SDC) | payer MEDICAID ==
[2019-07-20 10:53] LABS: APPEARANCE,URINE CLEAR; BILIRUBIN,URINE NEGATIVE (NEGATIVE); COLOR,URINE STRAW; GLUCOSE, URINE NEGATIVE (NEGATIVE); KETONES,URINE NEGATIVE (NEGATIVE); LEUKOCYTE ESTERASE,URINE NEGATIVE (NEGATIVE); NITRITE,URINE NEGATIVE (NEGATIVE); PROTEIN,URINE NEGATIVE (NEGATIVE); URINE SPECIFIC GRAVITY 1.002; UROBILINOGEN,URINE NEGATIVE mg/dL (<2.0)
[2019-07-20 11:37] LABS: HEMATOCRIT 38.7 % (36.0-47.0); HEMOGLOBIN 13.2 g/dL (12.0-15.5); MEAN CORPUSCULAR HEMOGLOBIN 32.5 pg (27.0-33.4); MEAN CORPUSCULAR HGB CONC 34.2 g/dL (32.0-36.0); MEAN CORPUSCULAR VOLUME 95 fl (80-97); PLATELET COUNT 314 10^3/uL (150-450); RED BLOOD COUNT 4.07 10^6/uL (3.72-5.28); RED CELL DISTRIBUTION WIDTH 13.6 % (11.5-14.0); WHITE BLOOD COUNT 6.4 10^3/uL (4.0-10.5)
[~2019-07-23 05:35] MED LIST: LACTATED RINGERS 1000 ML IV PRN
[2019-07-23] MEDS ORDERED: FENTANYL CITRATE INJ/PF 100 MCG/2 ML AMPUL ONE ×2 (06:50→08:30)
[2019-07-23] MEDS ORDERED: MIDAZOLAM 2 MG/2 ML INJ ONE (06:50)
[2019-07-23] MEDS ORDERED: DEXAMETHASONE SOD PHOSPHATE INJ 4 MG/1 ML VIAL ONE (06:50)
[2019-07-23] MEDS ORDERED: ONDANSETRON HCL INJ/PF 4 MG/2 ML SDV ONE (06:50)
[2019-07-23] MEDS ORDERED: PROPOFOL INJ 200 MG/20 ML VIAL IV ONE (06:51)
[2019-07-23] MEDS ORDERED: MORPHINE SULFATE 10 MG/ML INJ ONE (06:51)
[2019-07-23] MEDS ORDERED: RINGERS SOLUTION,LACTATED 1,000 ML IV PRN (08:15)
[2019-07-23] MEDS ORDERED: KETOROLAC TROMETHAMINE INJ/PF 30 MG/1 ML SDV IV PRN (08:15)
[2019-07-23] MEDS ORDERED: OXYCODONE-ACETAMINOPHEN 5-325 MG TABLET PO PRN ×2 (08:15)
[2019-07-23] MEDS ORDERED: IBUPROFEN 800 MG TABLET PO PRN (08:15)
--- NOTE | 2019-07-23 08:18 | Operative Report ---
Operative Report DATE OF SURGERY: 07/23/19 PREOPERATIVE DIAGNOSIS: Patient desires tubal ligation POSTOPERATIVE DIAGNOSIS: Same OPERATION: Laparoscopic bilateral Filshie clip application SURGEON: TIFFANIE MORAN ANESTHESIA: GA TISSUE REMOVED OR ALTERED: Fallopian tubes COMPLICATIONS: None ESTIMATED BLOOD LOSS: Minimal INTRAOPERATIVE FINDINGS: Normal uterus tubes ovaries PROCEDURE: Patient was taken the OR and placed in supine position. General anesthesia was induced. She was placed in a dorsolithotomy position using Nico stirrups. Her abdomen perineum and vagina were prepared and draped in sterile fashion. She had voided prior to the procedure and did not need catheterization. Incision was made at the umbilicus. The natural umbilical defect was identified and dilated with Adriana clamp which allowed a blunt port to be placed. Laparoscopy confirmed appropriate placement. The abdomen was insufflated with CO2 gas. Using sponge stick the uterus was elevated out upwards. The fallopian tubes were identified and followed out to the fimbriated ends and Filshie clip placed at the mid isthmic portion of each tube. There were no complications. The gas was allowed to escape from the abdomen the port and scope were removed at the same time. Fascia at the umbilicus was closed with a 2-0 Vicryl stitch. The skin was closed with a 4-0 undyed Vicryl stitch. Sponge stick was removed from the vagina. She is placed back in supine position and brought out of anesthesia. She was taken to the recovery room stable condition.
--- NOTE | 2019-07-23 08:21 | Discharge Summary ---
Discharge Summary (SDC) - Discharge Final Diagnosis: Encounter for tubal ligation Date of Surgery: 07/23/19 Discharge Date: 07/23/19 Condition: Good Prescriptions: Oxycodone HCl/Acetaminophen [Percocet 5-325 mg Tablet] 1 tab PO Q4HP PRN #30 tablet PRN Reason: Discharge Diet: Regular Discharge Activity: Activity As Tolerated, Balance Activity w/Rest Report the Following to Your Physician Immediately: Shortness of Breath, Fever over 101 Degrees
[2019-07-23] MEDS ORDERED: DIPHENHYDRAMINE HCL 50 MG/ML VIAL IV PRN (08:22)
[2019-07-23] MEDS ORDERED: MEPERIDINE HCL/PF INJ 25 MG/1 ML DISP.SYRIN IV PRN (08:22)
[2019-07-23] MEDS ORDERED: FENTANYL CITRATE INJ/PF 100 MCG/2 ML AMPUL IV PRN ×3 (08:22)
[2019-07-23] MEDS ORDERED: MORPHINE SULFATE 10 MG/ML INJ IV PRN (08:22)
[2019-07-23] MEDS ORDERED: PROMETHAZINE HCL INJ 25 MG/1 ML VIAL IV PRN ×2 (08:22)
[2019-07-23] MEDS ORDERED: KETOROLAC TROMETHAMINE INJ/PF 30 MG/1 ML SDV ONE (08:25)
[2019-07-23] MEDS ORDERED: ACETAMINOPHEN 1,000 MG/100 ML RTUPB IV ONE (08:52)
[2019-07-23] MEDS ORDERED: OXYCODONE-ACETAMINOPHEN 5-325 MG TABLET ONE (09:17)
[2019-07-23 10:39] VITALS: BP 119/66
[2019-07-23] MEDS ORDERED: SUCCINYLCHOLINE CHLORIDE INJ 200 MG/10 ML VIAL ONE (13:09)
== END 2019-07-23 10:18 | disposition home or self-care (01) ==
LOC: OROUT 05:35
PROVIDERS: ATTEND Obstetrics & Gynecology
DX: Z30.2 Encounter for sterilization (principal)
CPT/HCPCS: 36415; 85027; 81005; 81025; 58671; J2250; J1100; J3010; J1885; J2270; J2405; J2704; J0131; 851; J0330